=== PATIENT | female | born 1980 | race Caucasian/White ===

== ENCOUNTER 2018-02-11 20:04 | Emergency (ER) | payer OTHER, MEDICAID, SELFPAY ==
--- NOTE | 2018-02-11 20:12 | DI.RAD.S_ITS ---
PROCEDURE: XR CHEST 1V INDICATIONS: 37 year-old female with hematemesis. TECHNIQUE: One view of the chest was acquired. COMPARISON: [facility], AIDEN, CHEST 2 VIEW, 10/15/2014, 9:07. [facility], AIDEN, ABD ACUTE SERIES, 03/31/2014, 17:47. [facility], AIDEN, ABD ACUTE SERIES, 11/10/2008, 11:28. FINDINGS: Surgical changes and devices: Patient is status post cholecystectomy. Lungs and pleura: No pleural effusions or pneumothorax. Lungs are clear. Mediastinum: Mediastinal contours appear normal. Heart size is normal. Bones and chest wall: No suspicious bony lesions. Overlying soft tissues appear unremarkable. IMPRESSION: No acute cardiopulmonary disease. Dictated by: Jeremiah Espinoza M.D. on 02/11/2018 at 20:51 Approved by: Jeremiah Espinoza M.D. on 02/11/2018 at 20:51
[2018-02-11 20:14] VITALS: BP 131/88; PULSE 50; RESP 13; TEMP 36.9; O2SAT 99
[2018-02-11 20:15] VITALS: BP 131/88; PULSE 50; RESP 13; TEMP 36.9; O2SAT 99; BMI 41.5
--- NOTE | 2018-02-11 20:36 | ED.NAVMDI ---
HPI - Nausea/Vomiting/Diarrhea General Chief complaint: Nausea/Vomiting/Diarrhea Stated complaint: THROWING UP BLOOD EXTREM ABD PAIN Time Seen by Provider: 02/11/18 20:11 Source: patient Mode of arrival: ambulatory Limitations: no limitations History of Present Illness HPI Narrative: 37-year-old female here for evaluation of nausea and vomiting for the past 2 days. Also with left-sided flank pain. Patient states that over the past 12-24 hours she has also had blood streaking in her vomit. She states that the left-sided flank pain which initially started as intermittent and now has become constant but has times of increasing pain which is when she has the nausea and vomiting. She states the vomiting has not changed any of her symptoms. She states that she did have diarrhea at the start of the symptoms and that has improved. States she cannot keep anything down because of the vomiting. Has no urinary symptoms. Just finishing her menstrual cycle. Has had a hysterectomy and a tubal ligation in the past and a cholecystectomy otherwise no other abdominal surgeries. No prior history of renal stones. No fevers. Related Data Previous Rx's Medication Instructions Recorded ondansetron 4 mg PO Q6H PRN #10 tab 02/11/18 Allergies Allergy/AdvReac Type Severity Reaction Status Date / Time From REGLAN AdvReac Severe Agitated Uncoded 02/11/18 20:18 Review of Systems Constitutional Denies chills, Denies fever(s), Denies lethargy and Denies weakness Cardiovascular Denies chest pain, Denies irregular heart rhythm, Denies lightheadedness, Denies palpitations, Denies dyspnea, Denies dyspnea on exertion and Denies orthopnea Respiratory Denies cough, Denies dyspnea, Denies dyspnea on exertion and Denies wheezing Gastrointestinal Gastrointestinal: Reports abdominal pain, Denies melena, Denies bloating, Denies coffee ground emesis, Denies constipation, Reports cramping, Denies heartburn, Reports diarrhea, Reports nausea and Reports vomiting Genitourinary Denies urinary frequency, Denies difficulty voiding, Denies dysuria and Denies pelvic pain Musculoskeletal Reports back pain, Denies muscle weakness, Denies numbness and Denies tingling Integumentary/Breasts Denies pruritus, Denies erythema, Denies rash and Denies wounds Neurologic Denies numbness, Denies tingling and Denies weakness Endocrine Denies palpitations Hematologic/Lymphatic Denies easy bruising Allergic/Immunologic Denies wheezing Exam Initial Vital Signs Initial Vital Signs: Vital Signs Temperature 98.4 F 02/11/18 20:14 Pulse Rate 50 L 02/11/18 20:14 Respiratory Rate 13 02/11/18 20:14 Blood Pressure 131/88 H 02/11/18 20:14 Pulse Oximetry 99 02/11/18 20:14 Const General: cooperative and well developed Nutritional Appearance: well nourished Orientation: alert, awake, oriented x3 and not confused Chest Chest: normal inspection of the chest Resp Effort & Inspection: normal respiratory effort, able to speak in complete sentences, no respiratory distress and no use of accessory muscles Auscultation: clear to auscultation bilaterally, no rales, no rhonchi and no wheezes Cardio Rate: bradycardic Rhythm: regular rhythm Heart Sounds: no click, no gallops, no murmurs and no rubs Pulses: normal peripheral pulses GI Other: Left-sided abdominal pain and left CVA tenderness. No rebound. No guarding. Back/Spine/Pelvis Back: CVA tenderness right Skin General: no rashes or lesions noted, No jaundice and No petechiae Neuro General: alert, oriented x3, gait normal and no focal motor deficits Speech: speech normal Extrem General: full ROM, no clubbing, cyanosis or edema, no pedal edema and no calf tenderness Course Orders Ordered: ED Orders 02/11/18 20:12 XR chest 1V Stat 02/11/18 20:20 Complete Blood Count AUTO DIFF Stat Comprehensive Metabolic Panel Stat Lactate (Lactic Acid) Stat Lipase Stat Test Serum,Qual Stat 02/11/18 20:37 CT abdomen pelvis w con Stat Discontinued Medications Sodium Chloride (Normal Saline 0.9%) 1,000 mls @ 1,000 mls/hr IV BOLUS ONE Stop: 02/11/18 21:35 Last Admin: 02/11/18 20:49 Dose: 1,000 mls/hr Morphine Sulfate (Morphine) 4 mg IV NOW ONE Stop: 02/11/18 20:37 Last Admin: 02/11/18 20:49 Dose: 4 mg Ondansetron HCl (Zofran) 4 mg IV NOW ONE Stop: 02/11/18 20:37 Last Admin: 02/11/18 20:49 Dose: 4 mg Ondansetron HCl (Zofran Odt Prepack) 1 bottle MISC SEEINSTR ONE Stop: 02/11/18 22:28 Last Admin: 02/11/18 22:37 Dose: 1 bottle Vital Signs - 8 hr 02/11/18 20:14 02/11/18 20:15 02/11/18 21:00 Temperature 98.4 F 98.4 F Pulse Rate 50 L 50 L 50 L Respiratory Rate 13 13 18 Blood Pressure 131/88 H Blood Pressure [Right Arm] 131/88 H 101/64 Pulse Oximetry 99 99 97 02/11/18 22:13 02/11/18 22:54 Temperature Pulse Rate 56 L 77 Respiratory Rate 17 16 Blood Pressure 116/73 Blood Pressure [Right Arm] 116/62 Pulse Oximetry 97 97 MDM - Nausea/Vomiting/Diarrhea Lab Data Attestation: I reviewed the patient's lab results. Result diagrams: 02/11/18 20:20 02/11/18 20:20 Lab Results 02/11/18 02/11/18 02/11/18 Range/Units 20:20 20:20 20:20 WBC 13.7 H (4.5-11.0) X10^3/uL RBC 4.86 (4.0-5.2) X10^6/uL Hgb 14.4 (12.0-16.0) g/dL Hct 42.4 (36-46) % MCV 87.3 (80-100) fL MCH 29.6 (26-34) PG MCHC 33.9 (30-36) % RDW 12.8 (11.6-14.8) % Plt Count 292 (150-400) X10^3/uL Neut % (Auto) 71.8 (50-75) % Lymph % (Auto) 21.3 L (25-40) % Clare % (Auto) 6.1 (3-14) % Eos % (Auto) 0.3 L (2-4) % Baso % (Auto) 0.5 (0-2) % Neut # (Auto) 9800 H (1907-0775) /uL Sodium 143 (137-145) mmol/L Potassium 3.4 (3.4-5.1) mmol/L Chloride 104 (98-107) mmol/L Carbon Dioxide 25 (22-32) mmol/L BUN 9 (7-17) mg/dL Creatinine 0.60 (0.52-1.04) mg/dL Estimated GFR > 60.0 (>60) mL/min BUN/Creatinine Ratio 15.0 (6-22) Glucose 102 H (70-100) mg/dL Lactate 1.1 (0.7-2.1) mmol/L Calcium 9.3 (8.4-10.2) mg/dL Total Bilirubin 0.7 (0.2-1.3) mg/dL AST 36 (14-36) IU/L ALT 41 (9-52) IU/L Alkaline Phosphatase 74 (38-126) U/L Total Protein 7.6 (6.3-8.2) g/dL Albumin 4.2 (3.5-5.0) g/dL Globulin 3.4 (1.7-4.1) g/dL Albumin/Globulin Ratio 1.2 (1.0-2.8) Lipase 123 (23-300) U/L Serum , Qual (Negative) 02/11/18 Range/Units 20:20 WBC (4.5-11.0) X10^3/uL RBC (4.0-5.2) X10^6/uL Hgb (12.0-16.0) g/dL Hct (36-46) % MCV (80-100) fL MCH (26-34) PG MCHC (30-36) % RDW (11.6-14.8) % Plt Count (150-400) X10^3/uL Neut % (Auto) (50-75) % Lymph % (Auto) (25-40) % Clare % (Auto) (3-14) % Eos % (Auto) (2-4) % Baso % (Auto) (0-2) % Neut # (Auto) (3954-3248) /uL Sodium (137-145) mmol/L Potassium (3.4-5.1) mmol/L Chloride (98-107) mmol/L Carbon Dioxide (22-32) mmol/L BUN (7-17) mg/dL Creatinine (0.52-1.04) mg/dL Estimated GFR (>60) mL/min BUN/Creatinine Ratio (6-22) Glucose (70-100) mg/dL Lactate (0.7-2.1) mmol/L Calcium (8.4-10.2) mg/dL Total Bilirubin (0.2-1.3) mg/dL AST (14-36) IU/L ALT (9-52) IU/L Alkaline Phosphatase (38-126) U/L Total Protein (6.3-8.2) g/dL Albumin (3.5-5.0) g/dL Globulin (1.7-4.1) g/dL Albumin/Globulin Ratio (1.0-2.8) Lipase (23-300) U/L Serum , Qual Negative (Negative) Imaging Data Chest x-ray: Radiologist's impression: PROCEDURE: XR CHEST 1V INDICATIONS: 37 year-old female with hematemesis. TECHNIQUE: One view of the chest was acquired. COMPARISON: [facility], CR, CHEST 2 VIEW, 10/15/2014, 9:07. [facility], CR, ABD ACUTE SERIES, 03/31/2014, 17:47. [facility], CR, ABD ACUTE SERIES, 11/10/2008, 11:28. FINDINGS: Surgical changes and devices: Patient is status post cholecystectomy. Lungs and pleura: No pleural effusions or pneumothorax. Lungs are clear. Mediastinum: Mediastinal contours appear normal. Heart size is normal. Bones and chest wall: No suspicious bony lesions. Overlying soft tissues appear unremarkable. IMPRESSION: No acute cardiopulmonary disease. Dictated by: Jeremiah Espinoza M.D. on 02/11/2018 at 20:51 CT scan - abdomen: Radiologist's impression: PROCEDURE: CT ABDOMEN PELVIS W CON INDICATIONS: 37 year-old female with left abdominal pain. TECHNIQUE: After the administration of intravenous contrast, 5 mm thick sections acquired from the diaphragm to the symphysis. 5 mm coronal and sagittal reformats were acquired. For radiation dose reduction, the following was used: automated exposure control, adjustment of mA and/or kV according to patient size. COMPARISON: [facility], CT, CT ABDOMEN PELVIS WITH CONTRAST, 12/03/2017, 2:03. [facility], CT, ABDOMEN/PELVIS WITH CONTRAST, 10/15/2014, 10:53. [facility], CT, ABD/PELVIS W/CON (PNL), 04/03/2014, 13:53. [facility], CT, ABD/PELVIS W/CON (PNL), 12/06/2011, 3:00. [facility], CT, ABD/PELVIS W/CON (PNL), 11/14/2011, 14:57. [facility], CT, ABDOMEN/PELVIS WITH CONTRAST, 11/12/2011, 13:28. [facility], CT, ABDOMEN/PELVIS WITH CONTRAST, 09/06/2009, 20:26. [facility], CT, ABDOMEN/PELVIS WITH CONTRAST, 11/08/2008, 19:39. [facility], CT, KIDNEY/ URETER/BLADDER, 11/08/2008, 11:28. FINDINGS: Image quality: Excellent. ABDOMEN: Lung bases: Lung bases are clear, except for minimal basilar atelectasis. Heart size is normal. Solid organs: Liver is normal in size and enhancement. Gallbladder is surgically absent. Biliary system is non dilated. Pancreas enhances normally. Spleen is normal in size and enhancement. No adrenal nodules. Kidneys demonstrate normal size and enhancement, without hydronephrosis. Peritoneum and bowel: Bowel loops demonstrate normal wall thickness and caliber. The appendix appears normal. No colonic diverticula. No free fluid or air. Nodes and vessels: No retroperitoneal or mesenteric adenopathy by size criteria. Aorta and inferior vena cava are normal in size. Miscellaneous: No ventral hernias. PELVIS: Genitourinary: Bladder wall thickness is normal. Uterus and ovaries are normal in size. Miscellaneous: No inguinal hernias or adenopathy. Bones: No suspicious bony lesions. No vertebral body compression fractures. IMPRESSION: No imaging explanation for left abdominal pain. Dictated by: Jeremiah Espinoza M.D. on 02/11/2018 at 21:34 MDM Narrative Medical decision making narrative: Patient was nontoxic appearing. Had a benign abdominal exam. Does have slightly elevated leukocytosis however this could be the result of the vomiting for the past several days. Electrolytes unremarkable. Patient did tolerate oral intake here in the emergency department. CT scan does not show any acute surgical pathology. I suspect the blood streaks in her vomit is secondary to gastritis/H[place] tears from the retching for the past couple days. I did discuss this with her. Will send her home with [facility]. We also discussed her taking [id number]-[id number] reflux medications such as Maalox to help with the gastritis. She was given return precautions. Will hold on further workup for now. She expressed understanding and agreement with plan Discharge Plan Departure Patient Disposition: Home, Self-Care Clinical Impression: Nausea & vomiting, Hematemesis, Abdominal pain Discharge Date/Time: 02/11/18 22:30 Interventions: ED Discharge Assessment Last Done: 02/11/18 22:54 Instructions: Nausea and Vomiting-Adult Activity Restrictions/Additional Instructions: Take all the medications as instructed. Call your primary doctor for a follow-up. Return to the emergency department for any new symptoms, worsening symptoms, inability to tolerate oral intake, or any other concerning symptoms Prescriptions: New ondansetron 4 mg tablet,disintegrating 4 mg PO Q6H PRN (Reason: nausea and vomiting) Qty: 10 RF: 0 Stand Alone Forms: Work/School Restrictions
[2018-02-11 20:47] LABS: Alanine Aminotransferase 41 IU/L (9-52); Albumin 4.2 g/dL (3.5-5.0); Albumin Globulin Ratio 1.2 (1.0-2.8); Alkaline Phosphatase 74 U/L (38-126); Aspartate Aminotransferase 36 IU/L (14-36); Bilirubin Total 0.7 mg/dL (0.2-1.3); Blood Urea Nitrogen 9 mg/dL (7-17); Calcium 9.3 mg/dL (8.4-10.2); Carbon Dioxide 25 mmol/L (22-32); Chloride 104 mmol/L (98-107); Estimated Glomerular Filt Rate > 60.0 mL/min (>60); Globulin 3.4 g/dL (1.7-4.1); Glucose 102 mg/dL (70-100); HEMOLYSIS < 15 (0-50); Lactate (Lactic Acid) 1.1 mmol/L (0.7-2.1); Lipase 123 U/L (23-300); Potassium 3.4 mmol/L (3.4-5.1); Sodium 143 mmol/L (137-145); Total Protein 7.6 g/dL (6.3-8.2)
[2018-02-11] MEDS: MORPHINE 4 MG/ML INJ IV (20:49)
[2018-02-11] MEDS: ONDANSETRON 4 MG/2 ML INJ IV (20:49)
[2018-02-11] MEDS: SODIUM CHLORIDE 0.9% 1,000 ML 1000 ML IV (20:49)
[2018-02-11 20:51] LABS: Add Manual Diff / Slide Review NO; Basophils Percent Auto 0.5 % (0-2); Eosinophils Percent Auto 0.3 % (2-4); Hematocrit 42.4 % (36-46); Hemoglobin 14.4 g/dL (12.0-16.0); Lymphocytes Percent Auto 21.3 % (25-40); Mean Corpuscular HGB Conc 33.9 % (30-36); Mean Corpuscular Hemoglobin 29.6 PG (26-34); Mean Corpuscular Volume 87.3 fL (80-100); Monocytes Percent Auto 6.1 % (3-14); Neutrophils Absolute Auto 9800 /uL (3000-5900); Neutrophils Percent Auto 71.8 % (50-75); Platelet Count 292 X10^3/uL (150-400); Red Blood Cell Count 4.86 X10^6/uL (4.0-5.2); Red Cell Distribution Width 12.8 % (11.6-14.8); White Blood Cell Count 13.7 X10^3/uL (4.5-11.0)
[2018-02-11 20:55] LABS: Pregnancy Test Serum,Qual Negative (Negative)
[2018-02-11 21:00] VITALS: BP 101/64; PULSE 50; RESP 18; O2SAT 97
[2018-02-11 22:13] VITALS: BP 116/62; PULSE 56; RESP 17; O2SAT 97
[2018-02-11] MEDS: ONDANSETRON 4 MG ODT PREPACK 1 BOTTLE MISC (22:37)
[2018-02-11 22:54] VITALS: BP 116/73; PULSE 77; RESP 16; O2SAT 97
== END 2018-02-11 22:30 | disposition home or self-care (01) ==
PROVIDERS: Emergency Provider Emergency Medicine
DX: K92.0 Hematemesis (principal); R10.9 Unspecified abdominal pain
CPT/HCPCS: 36591; 71045; 74177; 80053; 83605; 83690; 84703; 85025; 96361; 96374; 96375; 99283; 99285; J2270; J2405; Q9967

== ENCOUNTER 2018-04-14 13:25 | Emergency (ER) | payer OTHER, MEDICAID, SELFPAY ==
[2018-04-14 13:31] VITALS: PULSE 75; RESP 22; O2SAT 97
--- NOTE | 2018-04-14 13:31 | ED_ITS ---
HPI - Nausea/Vomiting/Diarrhea <Anayeli Stearns PA-C - Last Filed: 04/14/18 23:30> General Chief complaint: Nausea/Vomiting/Diarrhea Stated complaint: can't stop puking, stomach pain Time Seen by Provider: 04/14/18 13:28 Source: patient and other (s.o.) Mode of arrival: ambulatory Limitations: no limitations History of Present Illness HPI Narrative: This 37-year-old female states that she has exacerbation of cyclical vomiting. She states that this started 3 days ago. She feels like this is 1 of her typical episodes with persistent nausea, retching and vomiting , and abdominal pain. She states she has had 3 episodes of loose stool today. She has not had blood in the vomitus or stool. She is mostly dry heaving today because she has not had any food or fluids, does vomit a little bit of yellow fluid from time to time. She denies fever. She states that she does finished her menses and sometimes there is a correlation. Her significant other states that this can correlate with onset of a manic episode as well. She was seen here for previous episode as well as another local hospital 2 months ago. She states that a warm bath or shower really helps but currently she has no access due to being homeless. She denies chest pain or dyspnea or other new complaints on systems review and states this is typical of her episodes. She does have anxiety in this is worse. Her boyfriend accompanies her today and states that sometimes this seems to occur prior to onset of a manic episode. Patient thinks that there is a correlation with menses. Related Data Home Medications Medication Instructions Recorded Confirmed alprazolam 1 tab PO DAILY 04/14/18 04/14/18 citalopram 40 mg PO DAILY 04/14/18 04/14/18 quetiapine 1 tab PO DAILY MDD 1 tab 04/14/18 04/14/18 quetiapine 100 mg PO BID MDD 4 tabs 04/14/18 04/14/18 risperidone 1 tab PO BEDTIME 04/14/18 04/14/18 Previous Rx's Medication Instructions Recorded ondansetron 4 mg PO Q6H PRN #10 tab 02/11/18 Allergies Allergy/AdvReac Type Severity Reaction Status Date / Time metoclopramide [From Reglan] AdvReac Verified 04/14/18 15:13 Review of Systems <Anayeli Stearns PA-C - Last Filed: 04/14/18 23:30> Review of Systems All systems reviewed & are unremarkable except as noted in HPI and below PFSH <Anayeli Stearns PA-C - Last Filed: 04/14/18 23:30> Comment: Daily THC, no street drugs Exam <Anayeli Stearns PA-C - Last Filed: 04/14/18 23:30> Narrative Exam Narrative: GENERAL APPEARANCE: Patient anxious, retching intermittently HEENT: PERRL, EOMI, no scleral icterus NECK: Supple, no masses LUNGS: Clear to auscultation bilaterally. HEART: Rate and rhythm regular, normal S1 and S2, no S3 or S4. ABDOMEN: Soft, nontender, nondistended, bowel sounds present x 4 quadrants, no masses palpable, no hepatosplenomegaly. EXTREMITIES: No edema, no cyanosis DERMATOLOGIC: No jaundice or exanthem NEUROLOGIC: Alert and oriented with normal speech and coordination Initial Vital Signs Initial Vital Signs: Vital Signs Pulse Rate 75 04/14/18 13:31 Respiratory Rate 22 04/14/18 13:31 Pulse Oximetry 97 04/14/18 13:31 <Charlotte Marie DO - Last Filed: 04/15/18 20:39> Initial Vital Signs Initial Vital Signs: Vital Signs Pulse Rate 75 04/14/18 13:31 Respiratory Rate 22 04/14/18 13:31 Pulse Oximetry 97 04/14/18 13:31 Course <Anayeli Stearns PA-C - Last Filed: 04/14/18 23:30> Additional Information: Patient has been anxious and had intermittent vomiting and retching while here today. She had relief for some time with a hot shower, antiemetics and antihistamines. She was also given Ativan which helped somewhat. She started to have retching again early in the evening and was given a dose of Haldol and was resting comfortably for several hours prior to discharge. She was given about 2.5 L of fluid over the course of the day. She will be discharged to [facility] where she has been previously with these exacerbations. Her boyfriend will transport her. Findings and treatment plan reviewed with attending physicians Juan and Frank who advised trial of Haldol. Previous records for same condition reviewed from here and outside hospital. Orders Ordered: Discontinued Medications Diphenhydramine HCl (Benadryl) 50 mg IV NOW ONE Stop: 04/14/18 13:59 Last Admin: 04/14/18 14:06 Dose: 50 mg Diphenhydramine HCl (Benadryl) 50 mg IM NOW ONE Stop: 04/14/18 16:39 Last Admin: 04/14/18 16:52 Dose: 50 mg Haloperidol (Haldol) 5 mg IV NOW ONE Stop: 04/14/18 20:18 Last Admin: 04/14/18 20:24 Dose: 5 mg Ondansetron HCl 8 mg/ Sodium (Chloride) 54 mls @ 216 mls/hr IV NOW ONE Stop: 04/14/18 13:59 Last Infusion: 04/14/18 14:43 Dose: 0 mls/hr Admin: 04/14/18 14:11 Dose: 216 mls/hr Sodium Chloride (Normal Saline 0.9%) 1,000 mls @ 1,000 mls/hr IV BOLUS ONE Stop: 04/14/18 14:57 Last Infusion: 04/14/18 15:01 Dose: 0 mls/hr Admin: 04/14/18 14:06 Dose: 1,000 mls/hr Sodium Chloride (Normal Saline 0.9%) 1,000 mls @ 1,000 mls/hr IV BOLUS ONE Stop: 04/14/18 21:16 Last Infusion: 04/14/18 22:06 Dose: 0 mls/hr Admin: 04/14/18 20:24 Dose: 1,000 mls/hr Sodium Chloride (Normal Saline 0.9%) 1,000 mls @ 1,000 mls/hr IV BOLUS ONE Stop: 04/14/18 22:58 Last Infusion: 04/14/18 23:36 Dose: 0 mls/hr Admin: 04/14/18 22:12 Dose: 1,000 mls/hr Lorazepam (Ativan) 2 mg IM NOW ONE Stop: 04/14/18 17:19 Last Admin: 04/14/18 17:26 Dose: 2 mg Metoclopramide HCl (Reglan) 10 mg IM NOW ONE Stop: 04/14/18 17:19 Last Admin: 04/14/18 18:46 Dose: Not Given Vital Signs - 8 hr 04/14/18 21:20 Temperature 98.5 F Pulse Rate 91 H Respiratory Rate 20 Blood Pressure [Right Arm] 131/76 H Pulse Oximetry 97 <Charlotte Marie DO - Last Filed: 04/15/18 20:39> Orders Ordered: Discontinued Medications Diphenhydramine HCl (Benadryl) 50 mg IV NOW ONE Stop: 04/14/18 13:59 Last Admin: 04/14/18 14:06 Dose: 50 mg Diphenhydramine HCl (Benadryl) 50 mg IM NOW ONE Stop: 04/14/18 16:39 Last Admin: 04/14/18 16:52 Dose: 50 mg Haloperidol (Haldol) 5 mg IV NOW ONE Stop: 04/14/18 20:18 Last Admin: 04/14/18 20:24 Dose: 5 mg Ondansetron HCl 8 mg/ Sodium (Chloride) 54 mls @ 216 mls/hr IV NOW ONE Stop: 04/14/18 13:59 Last Infusion: 04/14/18 14:43 Dose: 0 mls/hr Admin: 04/14/18 14:11 Dose: 216 mls/hr Sodium Chloride (Normal Saline 0.9%) 1,000 mls @ 1,000 mls/hr IV BOLUS ONE Stop: 04/14/18 14:57 Last Infusion: 04/14/18 15:01 Dose: 0 mls/hr Admin: 04/14/18 14:06 Dose: 1,000 mls/hr Sodium Chloride (Normal Saline 0.9%) 1,000 mls @ 1,000 mls/hr IV BOLUS ONE Stop: 04/14/18 21:16 Last Infusion: 04/14/18 22:06 Dose: 0 mls/hr Admin: 04/14/18 20:24 Dose: 1,000 mls/hr Sodium Chloride (Normal Saline 0.9%) 1,000 mls @ 1,000 mls/hr IV BOLUS ONE Stop: 04/14/18 22:58 Last Infusion: 04/14/18 23:36 Dose: 0 mls/hr Admin: 04/14/18 22:12 Dose: 1,000 mls/hr Lorazepam (Ativan) 2 mg IM NOW ONE Stop: 04/14/18 17:19 Last Admin: 04/14/18 17:26 Dose: 2 mg Metoclopramide HCl (Reglan) 10 mg IM NOW ONE Stop: 04/14/18 17:19 Last Admin: 04/14/18 18:46 Dose: Not Given Vital Signs - 8 hr 04/14/18 21:20 Temperature 98.5 F Pulse Rate 91 H Respiratory Rate 20 Blood Pressure [Right Arm] 131/76 H Pulse Oximetry 97 MDM - Nausea/Vomiting/Diarrhea <Anayeli Stearns PA-C - Last Filed: 04/14/18 23:30> Lab Data Result diagrams: 04/14/18 13:50 04/14/18 13:50 Lab Results 04/14/18 04/14/18 04/14/18 Range/Units 13:50 13:50 13:50 WBC 15.7 H (4.5-11.0) X10^3/uL RBC 5.18 (4.0-5.2) X10^6/uL Hgb 15.3 (12.0-16.0) g/dL Hct 45.8 (36-46) % MCV 88.5 (80-100) fL MCH 29.5 (26-34) PG MCHC 33.4 (30-36) % RDW 12.9 (11.6-14.8) % Plt Count 315 (150-400) X10^3/uL Neut % (Auto) 75.7 H (50-75) % Lymph % (Auto) 17.5 L (25-40) % [place] % (Auto) 5.3 (3-14) % Eos % (Auto) 0.8 L (2-4) % Baso % (Auto) 0.7 (0-2) % Neut # (Auto) 81937 H (8331-1379) /uL Sodium 143 (137-145) mmol/L Potassium 3.9 (3.4-5.1) mmol/L Chloride 108 H (98-107) mmol/L Carbon Dioxide 24 (22-32) mmol/L BUN 14 (7-17) mg/dL Creatinine 0.70 (0.52-1.04) mg/dL Estimated GFR > 60.0 (>60) mL/min BUN/Creatinine Ratio 20.0 (6-22) Glucose 126 H (70-100) mg/dL Lactate (0.7-2.1) mmol/L Calcium 9.5 (8.4-10.2) mg/dL Total Bilirubin 0.5 (0.2-1.3) mg/dL AST 37 H (14-36) IU/L ALT 25 (9-52) IU/L Alkaline Phosphatase 80 (38-126) U/L Total Protein 7.7 (6.3-8.2) g/dL Albumin 4.4 (3.5-5.0) g/dL Globulin 3.3 (1.7-4.1) g/dL Albumin/Globulin Ratio 1.3 (1.0-2.8) Lipase 68 (23-300) U/L Serum , Qual Negative (Negative) Urine Color Urine Appearance Urine pH Ur Specific [place] Urine Protein Urine Glucose (UA) Urine Ketones Urine Occult Blood Urine Nitrate Urine Bilirubin Urine Urobilinogen Ur Leukocyte Esterase Urine RBC (0-5/HPF) Urine WBC (0-5/HPF) Urine Bacteria (None) Ur Culture Indicated? Micro UA Comment Urine Opiates Screen (Negative) Ur Oxycodone Screen (Negative) Urine Methadone Screen (Negative) Ur Barbiturates Screen (Negative) U Tricyclic Antidepress (Negative) Ur Phencyclidine Scrn (Negative) Ur Amphetamines Screen (Negative) U Methamphetamines Scrn (Negative) Ur MDMA Scrn (Ecstasy) (Negative) U Benzodiazepines Scrn (Negative) Urine Cocaine Screen (Negative) U Marijuana (THC) Screen (Negative) 04/14/18 04/14/18 04/14/18 Range/Units 14:32 Unknown Unknown WBC (4.5-11.0) X10^3/uL RBC (4.0-5.2) X10^6/uL Hgb (12.0-16.0) g/dL Hct (36-46) % MCV (80-100) fL MCH (26-34) PG MCHC (30-36) % RDW (11.6-14.8) % Plt Count (150-400) X10^3/uL Neut % (Auto) (50-75) % Lymph % (Auto) (25-40) % [place] % (Auto) (3-14) % Eos % (Auto) (2-4) % Baso % (Auto) (0-2) % Neut # (Auto) (7218-2344) /uL Sodium (137-145) mmol/L Potassium (3.4-5.1) mmol/L Chloride (98-107) mmol/L Carbon Dioxide (22-32) mmol/L BUN (7-17) mg/dL Creatinine (0.52-1.04) mg/dL Estimated GFR (>60) mL/min BUN/Creatinine Ratio (6-22) Glucose (70-100) mg/dL Lactate 1.4 (0.7-2.1) mmol/L Calcium (8.4-10.2) mg/dL Total Bilirubin (0.2-1.3) mg/dL AST (14-36) IU/L ALT (9-52) IU/L Alkaline Phosphatase (38-126) U/L Total Protein (6.3-8.2) g/dL Albumin (3.5-5.0) g/dL Globulin (1.7-4.1) g/dL Albumin/Globulin Ratio (1.0-2.8) Lipase (23-300) U/L Serum , Qual (Negative) Urine Color Cancelled Urine Appearance Cancelled Urine pH Cancelled Ur Specific [place] Cancelled Urine Protein Cancelled Urine Glucose (UA) Cancelled Urine Ketones Cancelled Urine Occult Blood Cancelled Urine Nitrate Cancelled Urine Bilirubin Cancelled Urine Urobilinogen Cancelled Ur Leukocyte Esterase Cancelled Urine RBC None seen (0-5/HPF) Urine WBC None seen (0-5/HPF) Urine Bacteria None seen (None) Ur Culture Indicated? Cult not indicated Micro UA Comment Microscopic normal Urine Opiates Screen (Negative) Ur Oxycodone Screen (Negative) Urine Methadone Screen (Negative) Ur Barbiturates Screen (Negative) U Tricyclic Antidepress (Negative) Ur Phencyclidine Scrn (Negative) Ur Amphetamines Screen (Negative) U Methamphetamines Scrn (Negative) Ur MDMA Scrn (Ecstasy) (Negative) U Benzodiazepines Scrn (Negative) Urine Cocaine Screen (Negative) U Marijuana (THC) Screen (Negative) 04/14/18 Range/Units Unknown WBC (4.5-11.0) X10^3/uL RBC (4.0-5.2) X10^6/uL Hgb (12.0-16.0) g/dL Hct (36-46) % MCV (80-100) fL MCH (26-34) PG MCHC (30-36) % RDW (11.6-14.8) % Plt Count (150-400) X10^3/uL Neut % (Auto) (50-75) % Lymph % (Auto) (25-40) % [place] % (Auto) (3-14) % Eos % (Auto) (2-4) % Baso % (Auto) (0-2) % Neut # (Auto) (1360-8483) /uL Sodium (137-145) mmol/L Potassium (3.4-5.1) mmol/L Chloride (98-107) mmol/L Carbon Dioxide (22-32) mmol/L BUN (7-17) mg/dL Creatinine (0.52-1.04) mg/dL Estimated GFR (>60) mL/min BUN/Creatinine Ratio (6-22) Glucose (70-100) mg/dL Lactate (0.7-2.1) mmol/L Calcium (8.4-10.2) mg/dL Total Bilirubin (0.2-1.3) mg/dL AST (14-36) IU/L ALT (9-52) IU/L Alkaline Phosphatase (38-126) U/L Total Protein (6.3-8.2) g/dL Albumin (3.5-5.0) g/dL Globulin (1.7-4.1) g/dL Albumin/Globulin Ratio (1.0-2.8) Lipase (23-300) U/L Serum , Qual (Negative) Urine Color Urine Appearance Urine pH Ur Specific [place] Urine Protein Urine Glucose (UA) Urine Ketones Urine Occult Blood Urine Nitrate Urine Bilirubin Urine Urobilinogen Ur Leukocyte Esterase Urine RBC (0-5/HPF) Urine WBC (0-5/HPF) Urine Bacteria (None) Ur Culture Indicated? Micro UA Comment Urine Opiates Screen Negative (Negative) Ur Oxycodone Screen Negative (Negative) Urine Methadone Screen Negative (Negative) Ur Barbiturates Screen Negative (Negative) U Tricyclic Antidepress Positive H (Negative) Ur Phencyclidine Scrn Negative (Negative) Ur Amphetamines Screen Negative (Negative) U Methamphetamines Scrn Negative (Negative) Ur MDMA Scrn (Ecstasy) Negative (Negative) U Benzodiazepines Scrn Positive H (Negative) Urine Cocaine Screen Negative (Negative) U Marijuana (THC) Screen Positive H (Negative) <Charlotte Marie, DO - Last Filed: 04/15/18 20:39> Lab Data Lab Results 04/14/18 04/14/18 04/14/18 Range/Units 13:50 13:50 13:50 WBC 15.7 H (4.5-11.0) X10^3/uL RBC 5.18 (4.0-5.2) X10^6/uL Hgb 15.3 (12.0-16.0) g/dL Hct 45.8 (36-46) % MCV 88.5 (80-100) fL MCH 29.5 (26-34) PG MCHC 33.4 (30-36) % RDW 12.9 (11.6-14.8) % Plt Count 315 (150-400) X10^3/uL Neut % (Auto) 75.7 H (50-75) % Lymph % (Auto) 17.5 L (25-40) % [place] % (Auto) 5.3 (3-14) % Eos % (Auto) 0.8 L (2-4) % Baso % (Auto) 0.7 (0-2) % Neut # (Auto) 64465 H (3605-6732) /uL Sodium 143 (137-145) mmol/L Potassium 3.9 (3.4-5.1) mmol/L Chloride 108 H (98-107) mmol/L Carbon Dioxide 24 (22-32) mmol/L BUN 14 (7-17) mg/dL Creatinine 0.70 (0.52-1.04) mg/dL Estimated GFR > 60.0 (>60) mL/min BUN/Creatinine Ratio 20.0 (6-22) Glucose 126 H (70-100) mg/dL Lactate (0.7-2.1) mmol/L Calcium 9.5 (8.4-10.2) mg/dL Total Bilirubin 0.5 (0.2-1.3) mg/dL AST 37 H (14-36) IU/L ALT 25 (9-52) IU/L Alkaline Phosphatase 80 (38-126) U/L Total Protein 7.7 (6.3-8.2) g/dL Albumin 4.4 (3.5-5.0) g/dL Globulin 3.3 (1.7-4.1) g/dL Albumin/Globulin Ratio 1.3 (1.0-2.8) Lipase 68 (23-300) U/L Serum , Qual Negative (Negative) Urine Color Urine Appearance Urine pH Ur Specific [place] Urine Protein Urine Glucose (UA) Urine Ketones Urine Occult Blood Urine Nitrate Urine Bilirubin Urine Urobilinogen Ur Leukocyte Esterase Urine RBC (0-5/HPF) Urine WBC (0-5/HPF) Urine Bacteria (None) Ur Culture Indicated? Micro UA Comment Urine Opiates Screen (Negative) Ur Oxycodone Screen (Negative) Urine Methadone Screen (Negative) Ur Barbiturates Screen (Negative) U Tricyclic Antidepress (Negative) Ur Phencyclidine Scrn (Negative) Ur Amphetamines Screen (Negative) U Methamphetamines Scrn (Negative) Ur MDMA Scrn (Ecstasy) (Negative) U Benzodiazepines Scrn (Negative) Urine Cocaine Screen (Negative) U Marijuana (THC) Screen (Negative) 04/14/18 04/14/18 04/14/18 Range/Units 14:32 Unknown Unknown WBC (4.5-11.0) X10^3/uL RBC (4.0-5.2) X10^6/uL Hgb (12.0-16.0) g/dL Hct (36-46) % MCV (80-100) fL MCH (26-34) PG MCHC (30-36) % RDW (11.6-14.8) % Plt Count (150-400) X10^3/uL Neut % (Auto) (50-75) % Lymph % (Auto) (25-40) % [place] % (Auto) (3-14) % Eos % (Auto) (2-4) % Baso % (Auto) (0-2) % Neut # (Auto) (0334-1393) /uL Sodium (137-145) mmol/L Potassium (3.4-5.1) mmol/L Chloride (98-107) mmol/L Carbon Dioxide (22-32) mmol/L BUN (7-17) mg/dL Creatinine (0.52-1.04) mg/dL Estimated GFR (>60) mL/min BUN/Creatinine Ratio (6-22) Glucose (70-100) mg/dL Lactate 1.4 (0.7-2.1) mmol/L Calcium (8.4-10.2) mg/dL Total Bilirubin (0.2-1.3) mg/dL AST (14-36) IU/L ALT (9-52) IU/L Alkaline Phosphatase (38-126) U/L Total Protein (6.3-8.2) g/dL Albumin (3.5-5.0) g/dL Globulin (1.7-4.1) g/dL Albumin/Globulin Ratio (1.0-2.8) Lipase (23-300) U/L Serum , Qual (Negative) Urine Color Cancelled Urine Appearance Cancelled Urine pH Cancelled Ur Specific [place] Cancelled Urine Protein Cancelled Urine Glucose (UA) Cancelled Urine Ketones Cancelled Urine Occult Blood Cancelled Urine Nitrate Cancelled Urine Bilirubin Cancelled Urine Urobilinogen Cancelled Ur Leukocyte Esterase Cancelled Urine RBC None seen (0-5/HPF) Urine WBC None seen (0-5/HPF) Urine Bacteria None seen (None) Ur Culture Indicated? Cult not indicated Micro UA Comment Microscopic normal Urine Opiates Screen (Negative) Ur Oxycodone Screen (Negative) Urine Methadone Screen (Negative) Ur Barbiturates Screen (Negative) U Tricyclic Antidepress (Negative) Ur Phencyclidine Scrn (Negative) Ur Amphetamines Screen (Negative) U Methamphetamines Scrn (Negative) Ur MDMA Scrn (Ecstasy) (Negative) U Benzodiazepines Scrn (Negative) Urine Cocaine Screen (Negative) U Marijuana (THC) Screen (Negative) 04/14/18 Range/Units Unknown WBC (4.5-11.0) X10^3/uL RBC (4.0-5.2) X10^6/uL Hgb (12.0-16.0) g/dL Hct (36-46) % MCV (80-100) fL MCH (26-34) PG MCHC (30-36) % RDW (11.6-14.8) % Plt Count (150-400) X10^3/uL Neut % (Auto) (50-75) % Lymph % (Auto) (25-40) % [place] % (Auto) (3-14) % Eos % (Auto) (2-4) % Baso % (Auto) (0-2) % Neut # (Auto) (7906-9881) /uL Sodium (137-145) mmol/L Potassium (3.4-5.1) mmol/L Chloride (98-107) mmol/L Carbon Dioxide (22-32) mmol/L BUN (7-17) mg/dL Creatinine (0.52-1.04) mg/dL Estimated GFR (>60) mL/min BUN/Creatinine Ratio (6-22) Glucose (70-100) mg/dL Lactate (0.7-2.1) mmol/L Calcium (8.4-10.2) mg/dL Total Bilirubin (0.2-1.3) mg/dL AST (14-36) IU/L ALT (9-52) IU/L Alkaline Phosphatase (38-126) U/L Total Protein (6.3-8.2) g/dL Albumin (3.5-5.0) g/dL Globulin (1.7-4.1) g/dL Albumin/Globulin Ratio (1.0-2.8) Lipase (23-300) U/L Serum , Qual (Negative) Urine Color Urine Appearance Urine pH Ur Specific [place] Urine Protein Urine Glucose (UA) Urine Ketones Urine Occult Blood Urine Nitrate Urine Bilirubin Urine Urobilinogen Ur Leukocyte Esterase Urine RBC (0-5/HPF) Urine WBC (0-5/HPF) Urine Bacteria (None) Ur Culture Indicated? Micro UA Comment Urine Opiates Screen Negative (Negative) Ur Oxycodone Screen Negative (Negative) Urine Methadone Screen Negative (Negative) Ur Barbiturates Screen Negative (Negative) U Tricyclic Antidepress Positive H (Negative) Ur Phencyclidine Scrn Negative (Negative) Ur Amphetamines Screen Negative (Negative) U Methamphetamines Scrn Negative (Negative) Ur MDMA Scrn (Ecstasy) Negative (Negative) U Benzodiazepines Scrn Positive H (Negative) Urine Cocaine Screen Negative (Negative) U Marijuana (THC) Screen Positive H (Negative) Discharge Plan Departure Patient Disposition: Released, Other Clinical Impression: Cyclic vomiting syndrome, Anxiety Discharge Date/Time: 04/14/18 23:39 Interventions: ED Discharge Assessment Last Done: 04/14/18 23:33 Instructions: DI for Vomiting -- Adult Activity Restrictions/Additional Instructions: You can sip very small amounts of clear fluid as you tolerate. You have had lots of fluids here today in the IV so you do not have to push herself to do this if you feel nauseated. Try to rest in a quiet environment. You can take your usual medicines including the Zofran that you have as needed. You should return to the closest ED if you are acutely worse again, i.e. a lot of nausea and vomiting with feeling faint or new or worsening abdominal pain or fever. Otherwise it is okay to monitor as these episodes usually take a few more days to resolve Prescriptions: No Action ondansetron 4 mg tablet,disintegrating 4 mg PO Q6H PRN (Reason: nausea and vomiting) Qty: 10 RF: 0 citalopram 40 mg tablet 40 mg PO DAILY RF: 0 alprazolam 1 mg tablet 1 tab PO DAILY RF: 0 risperidone 0.5 mg tablet 1 tab PO BEDTIME RF: 0 quetiapine 50 mg tablet 100 mg PO BID MDD 4 tabs RF: 0 quetiapine 200 mg tablet extended release 24 hr 1 tab PO DAILY MDD 1 tab RF: 0 Referrals: Inocencio Gordon [Other] <Charlotte Marie DO - Last Filed: 04/15/18 20:39> Cosign ED Attending Sb Attestation: I was immediately available in the department for consultation. Documentation has been reviewed. I agree with assessment and plan.
--- NOTE | 2018-04-14 13:58 | PC.NURSE ---
PT states jami episode and she gets extreme N/V and abd pain that resolves with hot showers. She is homeless and has no availability for this
[2018-04-14] MEDS: SODIUM CHLORIDE 0.9% 1,000 ML 1000 ML IV ×3 (14:06→22:12)
[2018-04-14] MEDS: diphenhydrAMINE 50 MG/ML VIAL IV (14:06)
[2018-04-14] MEDS: ONDANSETRON 8 MG in SODIUM CHLORIDE 0.9% 50 ML 216 ML IV (14:11)
[2018-04-14 14:20] LABS: Add Manual Diff / Slide Review NO; Basophils Percent Auto 0.7 % (0-2); Eosinophils Percent Auto 0.8 % (2-4); Hematocrit 45.8 % (36-46); Hemoglobin 15.3 g/dL (12.0-16.0); Lymphocytes Percent Auto 17.5 % (25-40); Mean Corpuscular HGB Conc 33.4 % (30-36); Mean Corpuscular Hemoglobin 29.5 PG (26-34); Mean Corpuscular Volume 88.5 fL (80-100); Monocytes Percent Auto 5.3 % (3-14); Neutrophils Absolute Auto 11900 /uL (3000-5900); Neutrophils Percent Auto 75.7 % (50-75); Platelet Count 315 X10^3/uL (150-400); Red Blood Cell Count 5.18 X10^6/uL (4.0-5.2); Red Cell Distribution Width 12.9 % (11.6-14.8); White Blood Cell Count 15.7 X10^3/uL (4.5-11.0)
[2018-04-14 14:26] LABS: Pregnancy Test Serum,Qual Negative (Negative)
[2018-04-14 14:30] LABS: Alanine Aminotransferase 25 IU/L (9-52); Albumin 4.4 g/dL (3.5-5.0); Albumin Globulin Ratio 1.3 (1.0-2.8); Alkaline Phosphatase 80 U/L (38-126); Aspartate Aminotransferase 37 IU/L (14-36); Bilirubin Total 0.5 mg/dL (0.2-1.3); Blood Urea Nitrogen 14 mg/dL (7-17); Calcium 9.5 mg/dL (8.4-10.2); Carbon Dioxide 24 mmol/L (22-32); Chloride 108 mmol/L (98-107); Estimated Glomerular Filt Rate > 60.0 mL/min (>60); Globulin 3.3 g/dL (1.7-4.1); Glucose 126 mg/dL (70-100); HEMOLYSIS 20 (0-50); Lipase 68 U/L (23-300); Potassium 3.9 mmol/L (3.4-5.1); Sodium 143 mmol/L (137-145); Total Protein 7.7 g/dL (6.3-8.2)
--- NOTE | 2018-04-14 14:35 | PC.NURSE ---
States not much better after meds
[2018-04-14 14:49] LABS: Lactate (Lactic Acid) 1.4 mmol/L (0.7-2.1)
--- NOTE | 2018-04-14 15:16 | PC.NURSE ---
Req BSc after just returning from [place]
--- NOTE | 2018-04-14 15:27 | PC.NURSE ---
IV removed intact so pt can shower. OK per provider
[2018-04-14 15:28] LABS: Bacteria Urine None Seen; RBC Urine None Seen (0-5/HPF); WBC Urine None Seen (0-5/HPF)
[2018-04-14 15:46] LABS: Culture Indicated Urine Cult Not Indicated; Urine Comments Microscopic Normal
--- NOTE | 2018-04-14 16:11 | PC.NURSE ---
Pt returns from shower feeling better
[2018-04-14] MEDS: diphenhydrAMINE 50 MG/ML VIAL IM (16:52)
--- NOTE | 2018-04-14 17:07 | CM.SWNOTE ---
ED INSPECTOR PRECISION NOTE: Presenting problem: Pt is a 37 yo female who appears to be her stated age. Her eye contact was fair, speech ranged from calm to labile and she was periodically tearful. She reported current SI, but no plan and said that she has never attempted suicide. According to SO, Dino, pt has had 4-5 months with cyclical vomiting approximately monthly. When pt begins the vomiting, it is uncontrollable and she can become dehydrated and then unaware of her surroundings or know people who are familiar to her. Pt reported that she began with [facility] in [place] 2 years ago after her trauma. PRODUCT SAFETY TEST ENGINEER did not inquire about the trauma, given the labile mood and significant anxiety. She reported that her therapist is deep Carpenter and has a Telehealth prescriber since her provider retired. Pt's SO requestedinformation about other behavioral health providers and was given information about [facility], [facility] and [facility]. It is expected that pt will discharge to the [facility] later this evening. Discharge Planning/Care Management ED Crisis Response Assessment Start: 04/14/18 17:00 Freq: Status: Active Protocol: Document 04/14/18 17:00 (Rec: 04/14/18 17:07 [id number]) ED Crisis Response Assessment INSPECTOR PRECISION Assessment Type Mental Health Reason for INSPECTOR PRECISION Referral Pt came in with cycling vomiting which according to pt and her SO is a characteristic of jami. Initially they requested that PRODUCT SAFETY TEST ENGINEER inquire about places where they could find a shower as it was thought that they were homeless. It turns out that they are not homeless, but the bathroom is not fully constructed so they do not have a bath tub or shower at the current time. According to the pt, hot showers help when she is vomiting and the ongoing vomiting increases her anxiety. Referred by ED RN Presenting Problem Anxiety and vomiting. Mental health diagnosis Bipolar according to pt. VOA/CMS check No Suicidal thoughts Yes Past Suicidal thoughts Yes Current Suicidal thoughts Yes Prior Suicide attempts No Current plan for self harm No Access to guns and weapons No Thoughts of harm to others No Past thoughts of harm to others No Current thoughts of harming others No Crisis Plan Crisis Center has been contacted and they have a female bed. Pt called and spoke with staff at the [facility]. ED INSPECTOR PRECISION to fax info Resources Provided Information provided to SO includes behavioral health, homeless shelters, [facility] and [facility]. Additional Comment Expect that pt will go to Crisis Center later this evening. Discharge Planning/Care Management ED Crisis Response Assessment Start: 04/14/18 17:00 Freq: Status: Active Protocol: Document 04/14/18 17:00 (Rec: 04/14/18 17:07 [id number]) ED Crisis Response Assessment INSPECTOR PRECISION Assessment Type Mental Health Reason for INSPECTOR PRECISION Referral Pt came in with cycling vomiting which according to pt and her SO is a characteristic of jami. Initially they requested that PRODUCT SAFETY TEST ENGINEER inquire about places where they could find a shower as it was thought that they were homeless. It turns out that they are not homeless, but the bathroom is not fully constructed so they do not have a bath tub or shower at the current time. According to the pt, hot showers help when she is vomiting and the ongoing vomiting increases her anxiety. Referred by ED RN Presenting Problem Anxiety and vomiting. Mental health diagnosis Bipolar according to pt. VOA/CMS check No Suicidal thoughts Yes Past Suicidal thoughts Yes Current Suicidal thoughts Yes Prior Suicide attempts No Current plan for self harm No Access to guns and weapons No Thoughts of harm to others No Past thoughts of harm to others No Current thoughts of harming others No Crisis Plan Crisis Center has been contacted and they have a female bed. Pt called and spoke with staff at the [facility]. ED INSPECTOR PRECISION to fax info Resources Provided Information provided to SO includes behavioral health, homeless shelters, [facility] and [facility]. Additional Comment Expect that pt will go to Crisis Center later this evening.
[2018-04-14] MEDS: LORazepam 2 MG/ML SYRINGE IM (17:26)
--- NOTE | 2018-04-14 17:53 | PC.NURSE ---
Pt is almost a 1:1 care as is constantly coming out of room regardless of call light. I have been in the room every 10-15 minutes if not more often. Pt definitely exhibits signs of jami.
[2018-04-14 19:11] LABS: Urine Amphetamines Negative (Negative); Urine Barbiturates Negative (Negative); Urine Benzodiazepines Positive (Negative); Urine Cocaine Negative (Negative); Urine MDMA Negative (Negative); Urine Methadone Negative (Negative); Urine Methamphetamines Negative (Negative); Urine Morphine/Opi cutoff 2000 Negative (Negative); Urine Oxycodone Negative (Negative); Urine Phencyclidine Negative (Negative); Urine Tetrahydrocannabinol Positive (Negative); Urine Tricyclic Antidepressant Positive (Negative)
--- NOTE | 2018-04-14 19:43 | PC.NURSE ---
pt called jaciel [facility] on [employer] cell phone. pt was told they would call her back. pt continues to dry heave. provider notified. provider ordered haldol and requested NPO until she holds down fluids.
[2018-04-14] MEDS: HALOPERIDOL 5 MG/ML VIAL IV (20:24)
--- NOTE | 2018-04-14 21:19 | PC.NURSE ---
pt accepted at [facility] at midnight tonight. pt boyfriend left to get dinner and will return to take pt to [facility]. Pt is OK with this plan. pt on stretcher quiet and calm stating i feel sleepy. I wanna get some sleep. Provider notified of plan and responded stating discharge will be ready before midnight.
[2018-04-14 21:20] VITALS: BP 131/76; PULSE 91; RESP 20; TEMP 36.9; O2SAT 97
--- NOTE | 2018-04-14 22:22 | PC.NURSE ---
pt resting calmly on stretcher. pt stated i slept a little bit. Plan is still in place to discharge pt to [facility] when boyfriend returns from getting dinner.
[2018-04-14 23:33] VITALS: BP 146/77; PULSE 63; RESP 16; O2SAT 96
--- NOTE | 2018-04-14 23:38 | PC.NURSE ---
called [facility] for pt to tell them pt is on the way.
== END 2018-04-14 23:39 | disposition home or self-care (01) ==
PROVIDERS: Emergency Provider Internal Medicine
DX: G43.A0 Cyclical vomiting, in migraine, not intractable (principal); F41.9 Anxiety disorder, unspecified
CPT/HCPCS: 36591; 80053; 80305; 81003; 81015; 82075; 83605; 83690; 84703; 85025; 96361; 96365; 96375; 96376; 99284; 99285; J1200; J1630; J2060; J2405; J2765

== ENCOUNTER 2018-05-05 22:55 | Emergency (ER) | payer OTHER, MEDICAID, SELFPAY ==
[2018-05-05 23:21] VITALS: BP 146/77; PULSE 72; RESP 16; TEMP 36.2; O2SAT 97; BMI 41.5
--- NOTE | 2018-05-05 23:27 | DI.RAD.S_ITS ---
PROCEDURE: XR ACUTE ABDOMEN SERIES INDICATIONS: Abdominal pain TECHNIQUE: One view chest and two views of the abdomen were acquired. COMPARISON: None. FINDINGS: Surgical changes and devices: None. Chest: Lungs are clear. Heart size is normal. No pleural effusions. No pneumoperitoneum. Abdomen: Bowel gas pattern is normal. No suspicious calcifications. Visualized solid organ contours appear normal. Bones: No suspicious bony lesions. IMPRESSION: No acute radiographic findings. No acute intra-abdominal findings. Dictated by: Saniya Hernandez M.D. on 05/06/2018 at 9:01 Approved by: Saniya Hernandez M.D. on 05/06/2018 at 9:01
[2018-05-05] MEDS: ONDANSETRON 4 MG/2 ML INJ IV (23:35)
[2018-05-05] MEDS: LORazepam 2 MG/ML SYRINGE 1 MG IV (23:35)
[2018-05-05] MEDS: SODIUM CHLORIDE 0.9% 1,000 ML 1000 ML IV (23:35)
[2018-05-06 00:31] LABS: Add Manual Diff / Slide Review NO; Basophils Percent Auto 0.7 % (0-2); Eosinophils Percent Auto 0.1 % (2-4); Hematocrit 43.9 % (36-46); Hemoglobin 14.8 g/dL (12.0-16.0); Lymphocytes Percent Auto 13.3 % (25-40); Mean Corpuscular HGB Conc 33.7 % (30-36); Mean Corpuscular Hemoglobin 29.6 PG (26-34); Mean Corpuscular Volume 87.9 fL (80-100); Monocytes Percent Auto 3.4 % (3-14); Neutrophils Absolute Auto 11500 /uL (3000-5900); Neutrophils Percent Auto 82.5 % (50-75); Platelet Count 329 X10^3/uL (150-400); Red Cell Distribution Width 12.8 % (11.6-14.8)
[2018-05-06 00:42] LABS: Alanine Aminotransferase 29 IU/L (9-52); Albumin 4.7 g/dL (3.5-5.0); Albumin Globulin Ratio 1.4 (1.0-2.8); Alkaline Phosphatase 89 U/L (38-126); Aspartate Aminotransferase 27 IU/L (14-36); BUN Creatinine Ratio 17.1 (6-22); Bilirubin Total 0.6 mg/dL (0.2-1.3); Blood Urea Nitrogen 12 mg/dL (7-17); Calcium 9.9 mg/dL (8.4-10.2); Carbon Dioxide 24 mmol/L (22-32); Chloride 108 mmol/L (98-107); Estimated Glomerular Filt Rate > 60.0 mL/min (>60); Globulin 3.3 g/dL (1.7-4.1); Glucose 127 mg/dL (70-100); HEMOLYSIS < 15 (0-50); Lipase 49 U/L (23-300); Potassium 3.7 mmol/L (3.4-5.1); Sodium 146 mmol/L (137-145)
--- NOTE | 2018-05-06 01:17 | DI.CT.S_ITS ---
PROCEDURE: CT KIDNEY URETER BLADDER (KUB) INDICATIONS: flank pain TECHNIQUE: Noncontrast 5 mm thick sections acquired from the diaphragms to the symphysis. 5 mm thick coronal and sagittal reformats were then performed. For radiation dose reduction, the following was used: automated exposure control, adjustment of mA and/or kV according to patient size. COMPARISON: None. FINDINGS: Image quality: Image quality is limited by patient motion artifact. Lung bases: Lung bases are clear. Heart size is normal. Urinary system: Both kidneys are normal in size. No kidney stones. No hydronephrosis or perinephric fat stranding. Both ureters appear non-dilated throughout their expected courses. Bladder wall thickness is normal; no calcified bladder stones. Other solid organs: Liver is normal in size. Gallbladder is surgically absent. Pancreas is normal in contours. Spleen is normal in size. No adrenal nodules. Peritoneum and bowel: Unenhanced bowel loops demonstrate normal wall thickness and caliber. The appendix is thin walled. No free fluid or air. Nodes and vessels: No retroperitoneal or mesenteric adenopathy by size criteria. Aorta and inferior vena cava are normal in caliber. Abdominal wall: No ventral hernias. Pelvis: No free pelvic fluid. No inguinal hernias or adenopathy. Uterus and ovaries are grossly unremarkable. A small calcification is present within the right ovary. Bones: No suspicious bony lesions. No vertebral body compression fractures. IMPRESSION: 1. Limited study given patient motion artifact. No hydronephrosis, hydroureter, nephrolithiasis, or ureterolithiasis. 2. No acute intra-abdominal findings. Normal appendix. These findings are concordant with the overnight interpretation. Dictated by: Saniya Hernandez M.D. on 05/06/2018 at 9:06 Approved by: Saniya Hernandez M.D. on 05/06/2018 at 9:09
[2018-05-06] MEDS: KETOROLAC 60 MG/2 ML VIAL 15 MG IV (01:20)
[2018-05-06] MEDS: diazePAM 10 MG/2 ML SYRINGE 2 MG IV (01:20)
[2018-05-06 01:53] LABS: Bacteria Urine None Seen; RBC Urine None Seen (0-5/HPF); WBC Urine None Seen (0-5/HPF)
[2018-05-06 02:06] LABS: Amorphous Sediment Urine 3+; Culture Indicated Urine Cult Not Indicated
--- NOTE | 2018-05-06 02:58 | ED_ITS ---
HPI - Nausea/Vomiting/Diarrhea General Chief complaint: Nausea/Vomiting/Diarrhea Stated complaint: THROWING UP ABD PAIN Time Seen by Provider: 05/05/18 23:25 Source: patient Mode of arrival: ambulatory Limitations: no limitations History of Present Illness HPI Narrative: 37-year-old female with history of cyclic vomiting and daily marijuana use presents with generalized abdominal pain and frequent vomiting over the course of the day. Additionally she has had some loose stools. She denies any fever or chills. She denies dysuria, frequency or urgency. She denies vaginal bleeding or discharge. She was seen about a month ago for the same. She admittedly tends to have her symptoms worsen with depression or anxiety but states she has no abnormal stressors currently MD complaint: nausea, vomiting and diarrhea Onset (ago): hour(s) Description of Vomiting: food contents Description of Diarrhea: watery Location of pain: diffuse Radiation: diffuse Severity: moderate Quality: cramping Pain Consistency: intermittent Relieving factors: none Exacerbating factors: none Associated symptoms: denies other symptoms Related Data Home Medications Medication Instructions Recorded Confirmed quetiapine 1 tab PO DAILY MDD 1 tab 04/14/18 04/14/18 Previous Rx's Medication Instructions Recorded ondansetron 4 mg PO Q6H PRN #10 tab 02/11/18 alprazolam 1 tab PO DAILY #14 tab 05/06/18 citalopram 40 mg PO DAILY #14 tab 05/06/18 ondansetron [Zofran ODT] 4 mg PO Q6H PRN #14 tab 05/06/18 quetiapine 100 mg PO BID 14 Days #0 tab MDD 4 05/06/18 tabs risperidone 1 tab PO BEDTIME 14 Days #0 tab 05/06/18 Allergies Allergy/AdvReac Type Severity Reaction Status Date / Time metoclopramide [From Reglan] AdvReac Verified 04/14/18 15:13 Review of Systems Review of Systems All systems reviewed & are unremarkable except as noted in HPI and below Constitutional Denies chills, Denies fever(s), Denies lethargy and Denies weakness Eyes Denies change in vision, Denies eye discharge, Denies irritation and Denies loss of vision ENT Ears, Nose, Mouth, and Throat: Denies change in voice, Denies neck pain and Denies sore throat Cardiovascular Denies chest pain, Denies irregular heart rhythm, Denies lightheadedness, Denies palpitations, Denies dyspnea, Denies dyspnea on exertion and Denies orthopnea Respiratory Denies cough, Denies dyspnea, Denies dyspnea on exertion and Denies wheezing Gastrointestinal Gastrointestinal: Reports abdominal pain, Denies change in bowel habits, Reports diarrhea, Reports nausea and Reports vomiting Genitourinary Denies hematuria, Denies flank pain, Denies urinary incontinence and Denies urinary urgency Musculoskeletal Denies neck pain Integumentary/Breasts Denies pruritus, Denies erythema, Denies rash and Denies wounds Neurologic Denies confusion, Denies loss of vision and Denies weakness Psychiatric Denies anxiety, Denies confusion, Denies depression, Denies homicidal ideation and Denies suicidal ideation Endocrine Denies palpitations Hematologic/Lymphatic Denies easy bruising Allergic/Immunologic Denies wheezing [facility] Medical History Bipolar disorder (Chronic) Cyclic vomiting syndrome (Chronic) Status post tubal ligation (Resolved) Surgical History History of laparoscopic cholecystectomy (Resolved) Social History Smoking Status: Current every day smoker Exam Narrative Exam Narrative: 37-year-old female in distress, actively vomiting Initial Vital Signs Initial Vital Signs: Vital Signs Temperature 97.1 F L 05/05/18 23:21 Pulse Rate 72 05/05/18 23:21 Respiratory Rate 16 05/05/18 23:21 Blood Pressure 146/77 H 05/05/18 23:21 Pulse Oximetry 97 05/05/18 23:21 Const General: cooperative, well developed and acute distress Nutritional Appearance: well nourished Orientation: alert, awake, oriented x3 and not confused [facility] Head: normocephalic and atraumatic Ears: external ears normal and TM's normal bilaterally Nose: external nose normal and No nasal discharge Face and sinus: sinuses nontender, face symmetric, no sinus tenderness and No dry mucous membranes Mouth: oral mucosae normal and moist mucous membranes Teeth and gingiva: dentition normal Throat: tonsils normal and uvula midline Eyes General: appearance normal, both eyes and all related structures Eyelids: eyelids normal Conjunctivae: conjunctivae normal Sclera: sclerae normal Pupils: PERRL EOM: EOM intact bilaterally Neck Neck: normal visual inspection, trachea midline, No lymphadenopathy, No midline deformity and No JVD Lymphatic: No lymphedema Chest Chest: normal inspection of the chest Resp Effort & Inspection: normal respiratory effort, able to speak in complete sentences, no respiratory distress and no use of accessory muscles Auscultation: clear to auscultation bilaterally, no rales, no rhonchi and no wheezes Cardio Rate: regular rate Rhythm: regular rhythm Heart Sounds: no click, no gallops, no murmurs and no rubs Pulses: normal peripheral pulses GI Inspection: non-distended Palpation: soft, no hepatosplenomegaly, No guarding, No pulsatile mass and tender Auscultation: normal bowel sounds Back/Spine/Pelvis Back: No CVA tenderness Cervical Spine: cervical ROM normal and No pain with cervical ROM Thoracic/Lumbar Spine: thoracic and lumbar spine normal to inspection Skin General: no rashes or lesions noted, No jaundice and No petechiae Neuro General: alert, oriented x3, gait normal and no focal motor deficits Speech: speech normal Extrem General: full ROM, no clubbing, cyanosis or edema, no pedal edema and no calf tenderness Psych Appearance: well kempt Mental Status: mental status grossly normal Attitude: cooperative Thought Content: normal and suicidality Judgment: judgment good Course Orders Ordered: ED Orders 05/05/18 23:27 XR acute abdomen series Stat 05/06/18 01:10 Urine Microscopic Stat 05/06/18 01:17 CT kidney ureter bladder (KUB) Stat Discontinued Medications Diazepam (Valium) 2 mg IV NOW ONE Stop: 05/06/18 01:18 Last Admin: 05/06/18 01:20 Dose: 2 mg Sodium Chloride (Normal Saline 0.9%) 1,000 mls @ 1,000 mls/hr IV BOLUS ONE Stop: 05/06/18 00:24 Last Infusion: 05/06/18 01:04 Dose: 0 mls/hr Admin: 05/05/18 23:35 Dose: 1,000 mls/hr Ketorolac Tromethamine (Toradol) 15 mg IV NOW ONE Stop: 05/06/18 01:18 Last Admin: 05/06/18 01:20 Dose: 15 mg Lorazepam (Ativan) 1 mg IV NOW ONE Stop: 05/05/18 23:26 Last Admin: 05/05/18 23:35 Dose: 1 mg Ondansetron HCl (Zofran) 4 mg IV NOW ONE Stop: 05/05/18 23:26 Last Admin: 05/05/18 23:35 Dose: 4 mg Reevaluation(s) Reevaluation #1: Patient doing much better after Ativan and some fluids. She requests the ability to take a shower as this most often will help her tremendously Vital Signs - 8 hr 05/05/18 23:21 05/06/18 03:25 Temperature 97.1 F L 98.7 F Pulse Rate 72 86 Respiratory Rate 16 16 Blood Pressure 146/77 H 119/75 Pulse Oximetry 97 96 MDM - Nausea/Vomiting/Diarrhea Differential Diagnosis Likely traveler's diarrhea, food poisoning, gastroenteritis, clostridium difficile infection, drug-induced nausea and vomiting and dehydration Medical Records Attestation: I reviewed the patient's medical records. Lab Data Attestation: I reviewed the patient's lab results. Result diagrams: 05/05/18 00:20 05/05/18 00:20 Lab Results 05/05/18 05/05/18 05/06/18 Range/Units 00:20 00:20 01:10 WBC 14.0 H (4.5-11.0) X10^3/uL RBC 5.00 (4.0-5.2) X10^6/uL Hgb 14.8 (12.0-16.0) g/dL Hct 43.9 (36-46) % MCV 87.9 (80-100) fL MCH 29.6 (26-34) PG MCHC 33.7 (30-36) % RDW 12.8 (11.6-14.8) % Plt Count 329 (150-400) X10^3/uL Neut % (Auto) 82.5 H (50-75) % Lymph % (Auto) 13.3 L (25-40) % [place] % (Auto) 3.4 (3-14) % Eos % (Auto) 0.1 L (2-4) % Baso % (Auto) 0.7 (0-2) % Neut # (Auto) 84568 H (8461-6182) /uL Sodium 146 H (137-145) mmol/L Potassium 3.7 (3.4-5.1) mmol/L Chloride 108 H (98-107) mmol/L Carbon Dioxide 24 (22-32) mmol/L BUN 12 (7-17) mg/dL Creatinine 0.70 (0.52-1.04) mg/dL Estimated GFR > 60.0 (>60) mL/min BUN/Creatinine Ratio 17.1 (6-22) Glucose 127 H (70-100) mg/dL Calcium 9.9 (8.4-10.2) mg/dL Total Bilirubin 0.6 (0.2-1.3) mg/dL AST 27 (14-36) IU/L ALT 29 (9-52) IU/L Alkaline Phosphatase 89 (38-126) U/L Total Protein 8.0 (6.3-8.2) g/dL Albumin 4.7 (3.5-5.0) g/dL Globulin 3.3 (1.7-4.1) g/dL Albumin/Globulin Ratio 1.4 (1.0-2.8) Lipase 49 (23-300) U/L Urine RBC None seen (0-5/HPF) Urine WBC None seen (0-5/HPF) Amorphous Sediment 3+ Urine Bacteria None seen (None) Ur Culture Indicated? Cult not indicated Micro UA Comment Not Reportable Point of Care Testing Test Results Negative Urine Dip Bedside Urine Glucose Negative Bedside Urine Bilirubin + 1 Bedside Urine Ketone +++ 80 Urine Specific [place] 1.030 Bedside Urine Occult Blood +/- Bedside Urine Protein + 30 Bedside Urine Urobilinogen - Negative Bedside Urine Nitrite - Negative Bedside Urine Leukocytes - Negative Esterase Imaging Data CT scan - abdomen: Radiologist's impression: No acute findings Discharge Plan Departure Patient Disposition: Home Clinical Impression: Cannabis hyperemesis syndrome concurrent with and due to cannabis dependence Discharge Date/Time: 05/06/18 03:26 Interventions: ED Discharge Assessment Last Done: 05/06/18 03:25 Instructions: DI for Vomiting -- Adult Activity Restrictions/Additional Instructions: *You have been diagnosed with [ cannabis hyperemesis syndrome ] *What to do: *Take medications as directed. Avoid continued use of cannabis as it very well could be a main contributor to your symptoms. Additionally it is ill advised to quit your medications without input from the prescriber. *Follow up with your primary care provider in 2-3 days, call for an appointment. Let them know you were seen in the Emergency Department and that we ask that you be seen in follow up *Return to ER if you should have any new, worsening or concerning symptoms , such as [ ] Prescriptions: New ondansetron [Zofran ODT] 4 mg tablet,disintegrating 4 mg PO Q6H PRN (Reason: nausea and vomiting) Qty: 14 RF: 0 Continue citalopram 40 mg tablet 40 mg PO DAILY Qty: 14 RF: 0 alprazolam 1 mg tablet 1 tab PO DAILY Qty: 14 RF: 0 risperidone 0.5 mg tablet 1 tab PO BEDTIME 14 Days Qty: 0 RF: 0 quetiapine 50 mg tablet 100 mg PO BID MDD 4 tabs 14 Days Qty: 0 RF: 0 No Action ondansetron 4 mg tablet,disintegrating 4 mg PO Q6H PRN (Reason: nausea and vomiting) Qty: 10 RF: 0 quetiapine 200 mg tablet extended release 24 hr 1 tab PO DAILY MDD 1 tab RF: 0
[2018-05-06 03:25] VITALS: BP 119/75; PULSE 86; RESP 16; TEMP 37.1; O2SAT 96
== END 2018-05-06 03:26 | disposition home or self-care (01) ==
PROVIDERS: Emergency Provider Emergency Medicine
DX: F12.288 Cannabis dependence with other cannabis-induced disorder (principal)
CPT/HCPCS: 36415; 36591; 74022; 74176; 80053; 81003; 81015; 81025; 83690; 85025; 96361; 96374; 96375; 99283; 99284; J1885; J2060; J2405; J3360